=== PATIENT | male | born 1990 | race African-American/Black ===

== ENCOUNTER 2017-07-07 02:10 | Inpatient (IN) | payer SELFPAY ==
[2017-07-07] MEDS ORDERED: Albuterol/Ipratropium 3.0-0.5 MG/3 ML Neb Soln NEB ONE (02:24)
[2017-07-07] MEDS ORDERED: Sodium Chloride 0.9% 1,000 ML IV ONE (02:24)
[2017-07-07] MEDS ORDERED: methylPREDNISolone Sodium Succinate 125 MG/2 ML SDV IVPUSH ONE (02:24)
--- NOTE | 2017-07-07 02:25 | EDM.PDOC ---
ED HPI GENERAL MEDICAL PROBLEM - General Stated Complaint: HARD TIME BREATHING Time Seen by Provider: 07/07/17 02:24 Source of Information: Reports: Patient - History of Present Illness INITIAL COMMENTS - FREE TEXT/NARRATIVE: HISTORY AND PHYSICAL: History of present illness: []Patient presents today In a short of breath since he has some epigastric pain he rates 4 out of 10 nonradiating, patient is tachypneic that he can speak in full sentences and is in no distress. He denies chronic illness disease her medications denies surgical history He complains of intermittent fever shortness of breath no nausea vomiting chest pain headache dizziness or palpitation no bowel or urine symptoms Review of systems: As per history of present illness and below otherwise all systems reviewed and negative. Past medical history: As per history of present illness and as reviewed below otherwise noncontributory. Surgical history: As per history of present illness and as reviewed below otherwise noncontributory. Social history: No reported history of drug or alcohol abuse. Family history: As per history of present illness and as reviewed below otherwise noncontributory. Physical exam: HEENT: Atraumatic, normocephalic, pupils reactive, negative for conjunctival pallor or scleral icterus, mucous membranes moist, throat clear, neck supple, nontender, trachea midline. Lungs: Clear to auscultation, breath sounds equal bilaterally, chest nontender. Heart: S1S2, regular, negative for clicks, rubs, or JVD. Abdomen: Soft, nondistended, nontender. Negative for masses or hepatosplenomegaly. Negative for costovertebral tenderness. Pelvis: Stable nontender. Genitourinary: Deferred. Rectal: Deferred. Extremities: Atraumatic, negative for cords or calf pain. Neurovascular unremarkable. Neuro: Awake, alert, oriented. Cranial nerves II through XII unremarkable. Cerebellum unremarkable. Motor and sensory unremarkable throughout. Exam nonfocal. Diagnostics: []Lab as below EKG Chest 1 view Therapeutics: []Normal saline bolus Solu-Medrol 125 mg IV DuoNeb Levaquin 750 mg IV Septra Impression: []Short of breath Fever Multifocal pneumonia Definitive disposition and diagnosis as appropriate pending reevaluation and review of above. generalized Pain Score (Numeric/FACES): 8 - Related Data Allergies Allergy/AdvReac Type Severity Reaction Status Date / Time No Known Allergies Allergy Verified 07/07/17 02:25 Home Meds: Home Meds . [No Known Home Meds] 07/07/17 [History] ED ROS GENERAL - Review of Systems Review Of Systems: ROS reveals no pertinent complaints other than HPI. HEENT: Reports: No Symptoms ED EXAM, GENERAL - Physical Exam Exam: See Below Course - Vital Signs Last Recorded V/S: Last Vital Signs Temp 36.3 C 07/07/17 05:45 Pulse 98 07/07/17 05:45 Resp 37 H 07/07/17 05:45 BP 97/64 07/07/17 05:45 Pulse Ox 97 07/07/17 05:45 - Orders/Labs/Meds Orders: Active Orders 24 hr Category Date Time Status EKG Documentation Completion [RC] STAT Care 07/07/17 02:58 Active RT Aerosol Therapy [RC] ASDIRECTED Care 07/07/17 02:24 Active CTA Chest W WO Contrast [Ang Chest] [CT] Stat Exams 07/07/17 03:34 Taken Chest 1V Frontal [CR] Stat Exams 07/07/17 02:23 Taken CULTURE BLOOD [BC] Stat Lab 07/07/17 02:42 Received CULTURE BLOOD [BC] Stat Lab 07/07/17 02:46 Received HIV12 AG/AB 4TH GEN W/REFLEX [CHEM] Stat Lab 07/07/17 06:16 Ordered LDH, ISOENZYMES [REF] Stat Lab 07/07/17 06:17 Ordered Levofloxacin/Dextrose 5%-Water [Levaquin in D5W 750 MG/ Med 07/07/17 04:50 Active 150 ML] 750 mg Premix Bag 1 bag IV ONETIME Sulfamethoxazole/Trimethoprim [Septra IV] 20 ml Med 07/07/17 06:30 Active Dextrose 5% in Water 500 ml IV Q8H Blood Culture x2 Reflex Set [OM.PC] Stat Oth 07/07/17 02:23 Ordered Medication Orders Levofloxacin/Dextrose 750 mg/ (Premix) 150 mls @ 100 mls/hr IV ONETIME ONE Stop: 07/07/17 06:19 Last Admin: 07/07/17 04:54 Dose: 100 mls/hr Trimethoprim/Sulfamethoxazole (20 ml/ Dextrose/Water) 520 mls @ 250 mls/hr IV Q8H TACOS Labs: Laboratory Tests 07/07/17 07/07/17 07/07/17 Range/Units 02:40 03:14 03:14 WBC 13.32 H (4.0-11.0) K/uL RBC 6.32 H (4.50-5.90) M/uL Hgb 13.1 (13.0-17.0) g/dL Hct 40.2 (38.0-50.0) % MCV 63.6 L (80.0-98.0) fL MCH 20.7 L (27.0-32.0) pg MCHC 32.6 (31.0-37.0) g/dL RDW Std Deviation 34.8 (28.0-62.0) fl RDW Coeff of Mayank 15 (11.0-15.0) % Plt Count 161 (150-400) K/uL MPV 9.70 (7.40-12.00) fL Neut % (Auto) 77.0 (48.0-80.0) % Lymph % (Auto) 11.6 L (16.0-40.0) % [place] % (Auto) 7.4 (0.0-15.0) % Eos % (Auto) 3.9 (0.0-7.0) % Baso % (Auto) 0.1 (0.0-1.5) % Neut # (Auto) 10.3 H (1.4-5.7) K/uL Lymph # (Auto) 1.5 (0.6-2.4) K/uL [place] # (Auto) 1.0 H (0.0-0.8) K/uL Eos # (Auto) 0.5 (0.0-0.7) K/uL Baso # (Auto) 0.0 (0.0-0.1) K/uL Nucleated RBC % 0.0 /100WBC Nucleated RBCs # 0 K/uL D-Dimer, Quantitative (0.0-0.52) mg/LFEU ABG pH (7.35-7.45) ABG pCO2 (35-45) mmHG ABG pO2 (75-100) mmHG ABG HCO3 (22-26) mEq/L ABG Total CO2 ABG Base Excess (-2.0-2.0) Sodium 137 (136-146) mmol/L Potassium 4.0 (3.5-5.1) mmol/L Chloride 105 (98-110) mmol/L Carbon Dioxide 22 (21-31) mmol/L BUN 17 (6.0-23.0) mg/dL Creatinine 1.1 (0.6-1.5) mg/dL Est Cr Clr Drug Dosing 83.81 mL/min Estimated GFR (MDRD) > 60.0 ml/min Glucose 96 (60-110) mg/dL Calcium 8.3 L (8.8-10.8) mg/dL Total Bilirubin 1.6 H (0.1-1.5) mg/dL AST 18 (5-40) IU/L ALT 16 (8-54) IU/L Alkaline Phosphatase 45 (40-150) Troponin I < 0.10 (0.0-0.29) NG/ML Total Protein 6.5 (6.0-8.0) g/dL Albumin 3.8 (3.5-5.0) g/dL Globulin 2.7 (2.0-3.5) g/dL Albumin/Globulin Ratio 1.4 (1.3-2.8) Amylase 36 (10-90) U/L Lipase < 8 (7-80) U/L Urine Color Urine Appearance Urine pH (5.0-8.0) Ur Specific [place] (1.001-1.035) Urine Protein (NEGATIVE) mg/dL Urine Glucose (UA) (NEGATIVE) mg/dL Urine Ketones (NEGATIVE) mg/dL Urine Occult Blood (NEGATIVE) Urine Nitrite (NEGATIVE) Urine Bilirubin (NEGATIVE) Urine Urobilinogen (<2.0) EU/dL Ur Leukocyte Esterase (NEGATIVE) Urine RBC (0-2/HPF) Urine WBC (0-5/HPF) Ur Epithelial Cells (NONE-FEW) Urine Bacteria (NEGATIVE) 07/07/17 07/07/17 07/07/17 Range/Units 03:14 03:30 04:55 WBC (4.0-11.0) K/uL RBC (4.50-5.90) M/uL Hgb (13.0-17.0) g/dL Hct (38.0-50.0) % MCV (80.0-98.0) fL MCH (27.0-32.0) pg MCHC (31.0-37.0) g/dL RDW Std Deviation (28.0-62.0) fl RDW Coeff of [place]ank (11.0-15.0) % Plt Count (150-400) K/uL MPV (7.40-12.00) fL Neut % (Auto) (48.0-80.0) % Lymph % (Auto) (16.0-40.0) % [place] % (Auto) (0.0-15.0) % Eos % (Auto) (0.0-7.0) % Baso % (Auto) (0.0-1.5) % Neut # (Auto) (1.4-5.7) K/uL Lymph # (Auto) (0.6-2.4) K/uL [place] # (Auto) (0.0-0.8) K/uL Eos # (Auto) (0.0-0.7) K/uL Baso # (Auto) (0.0-0.1) K/uL Nucleated RBC % /100WBC Nucleated RBCs # K/uL D-Dimer, Quantitative 2.18 H (0.0-0.52) mg/LFEU ABG pH 7.424 (7.35-7.45) ABG pCO2 32 L (35-45) mmHG ABG pO2 83 (75-100) mmHG ABG HCO3 21 L (22-26) mEq/L ABG Total CO2 18.9 ABG Base Excess -2.8 L (-2.0-2.0) Sodium (136-146) mmol/L Potassium (3.5-5.1) mmol/L Chloride (98-110) mmol/L Carbon Dioxide (21-31) mmol/L BUN (6.0-23.0) mg/dL Creatinine (0.6-1.5) mg/dL Est Cr Clr Drug Dosing mL/min Estimated GFR (MDRD) ml/min Glucose (60-110) mg/dL Calcium (8.8-10.8) mg/dL Total Bilirubin (0.1-1.5) mg/dL AST (5-40) IU/L ALT (8-54) IU/L Alkaline Phosphatase (40-150) Troponin I (0.0-0.29) NG/ML Total Protein (6.0-8.0) g/dL Albumin (3.5-5.0) g/dL Globulin (2.0-3.5) g/dL Albumin/Globulin Ratio (1.3-2.8) Amylase (10-90) U/L Lipase (7-80) U/L Urine Color YELLOW Urine Appearance CLEAR Urine pH 6.0 (5.0-8.0) Ur Specific [place] 1.015 (1.001-1.035) Urine Protein NEGATIVE (NEGATIVE) mg/dL Urine Glucose (UA) NEGATIVE (NEGATIVE) mg/dL Urine Ketones >=80 (NEGATIVE) mg/dL Urine Occult Blood TRACE-INTACT (NEGATIVE) Urine Nitrite NEGATIVE (NEGATIVE) Urine Bilirubin NEGATIVE (NEGATIVE) Urine Urobilinogen 1.0 (<2.0) EU/dL Ur Leukocyte Esterase NEGATIVE (NEGATIVE) Urine RBC 0-1 (0-2/HPF) Urine WBC 0-2 (0-5/HPF) Ur Epithelial Cells RARE (NONE-FEW) Urine Bacteria RARE (NEGATIVE) Meds: Medications Generic Name Dose Route Start Last Admin Trade Name Eliasq PRN Reason Stop Dose Admin Levofloxacin/Dextrose 750 mg/ 150 mls @ 100 mls/hr 07/07/17 04:50 07/07/17 04 :54 Premix IV 07/07/17 06:19 100 mls/hr ONETIME ONE Administration Trimethoprim/Sulfamethoxazole 520 mls @ 250 mls/hr 07/07/17 06:30 20 ml/ Dextrose/Water IV Q8H TACOS Discontinued Medications Generic Name Dose Route Start Last Admin Trade Name Jocelyn PRN Reason Stop Dose Admin Albuterol/Ipratropium 3 ml 07/07/17 02:24 07/07/17 02:36 Duoneb 3.0-0.5 Mg/3 Ml NEB 07/07/17 02:25 3 ml ONETIME ONE Administration Sodium Chloride 1,000 mls @ 999 mls/hr 07/07/17 02:24 07/07/17 02:43 Normal Saline IV 07/07/17 03:24 999 mls/hr STAT ONE Administration Iopamidol 50 ml 07/07/17 04:41 07/07/17 04:42 Isovue Multipack-370 (76%) IVPUSH 07/07/17 04:42 50 ml ONETIME STA Administration Lorazepam 1 mg 07/07/17 04:38 07/07/17 04:43 Ativan IVPUSH 07/07/17 04:39 1 mg ONETIME ONE Administration Methylprednisolone Sodium Succinate 125 mg 07/07/17 02:24 07/07/17 02:43 Solu-Medrol IVPUSH 07/07/17 02:25 125 mg ONETIME ONE Administration Departure - Departure Time of Disposition: 06:20 Disposition: Admitted As Inpatient 64 Condition: Poor Clinical Impression: Pneumonia - Discharge Information - My Orders Last 24 Hours: My Active Orders 07/07/17 02:23 Chest 1V Frontal [CR] Stat Blood Culture x2 Reflex Set [OM.PC] Stat 07/07/17 02:24 RT Aerosol Therapy [RC] ASDIRECTED 07/07/17 02:42 CULTURE BLOOD [BC] Stat 07/07/17 02:46 CULTURE BLOOD [BC] Stat 07/07/17 02:58 EKG Documentation Completion [RC] STAT 07/07/17 03:34 CTA Chest W WO Contrast [Ang Chest] [CT] Stat 07/07/17 04:50 Levofloxacin/Dextrose 5%-Water [Levaquin in D5W 750 MG/150 ML] 750 mg Premix Bag 1 bag IV ONETIME 07/07/17 06:16 HIV12 AG/AB 4TH GEN W/REFLEX [CHEM] Stat 07/07/17 06:17 LDH, ISOENZYMES [REF] Stat 07/07/17 06:30 Sulfamethoxazole/Trimethoprim [Septra IV] 20 ml Dextrose 5% in Water 500 ml IV Q8H - Assessment/Plan Last 24 Hours: My Active Orders 07/07/17 02:23 Chest 1V Frontal [CR] Stat Blood Culture x2 Reflex Set [OM.PC] Stat 07/07/17 02:24 RT Aerosol Therapy [RC] ASDIRECTED 07/07/17 02:42 CULTURE BLOOD [BC] Stat 07/07/17 02:46 CULTURE BLOOD [BC] Stat 07/07/17 02:58 EKG Documentation Completion [RC] STAT 07/07/17 03:34 CTA Chest W WO Contrast [Ang Chest] [CT] Stat 07/07/17 04:50 Levofloxacin/Dextrose 5%-Water [Levaquin in D5W 750 MG/150 ML] 750 mg Premix Bag 1 bag IV ONETIME 07/07/17 06:16 HIV12 AG/AB 4TH GEN W/REFLEX [CHEM] Stat 07/07/17 06:17 LDH, ISOENZYMES [REF] Stat 07/07/17 06:30 Sulfamethoxazole/Trimethoprim [Septra IV] 20 ml Dextrose 5% in Water 500 ml IV Q8H
[2017-07-07 03:44] LABS: CHLORIDE,CL 105 mmol/L (98-110); SODIUM,NA 137 mmol/L (136-146)
[2017-07-07] MEDS ORDERED: LORazepam 2 MG/ML MDV IVPUSH ONE (04:38)
[2017-07-07] MEDS ORDERED: Iopamidol 755 MG/ML 500 ML Multipack Bottle IVPUSH STA (04:41)
[2017-07-07] MEDS ORDERED: Levofloxacin/Dextrose 5%-Water 750 MG in Premix Bag 1 BAG IV ONE (04:50)
[2017-07-07] MEDS ORDERED: Sulfamethoxazole/Trimethoprim 20 ML in Dextrose 5% in Water 500 ML IV SCH ×2 (06:30)
[2017-07-07] MEDS: cefTRIAXone 1 GM in Premix Bag 1 BAG IV SCH (08:07)
[2017-07-07] MEDS ORDERED: Ondansetron 4 MG Tab.DIS PO PRN (08:20)
[2017-07-07] MEDS ORDERED: Acetaminophen/HYDROcodone 325-5 MG Tab PO PRN (08:20)
[2017-07-07] MEDS ORDERED: Albuterol/Ipratropium 3.0-0.5 MG/3 ML Neb Soln NEB PRN (08:20)
[2017-07-07] MEDS ORDERED: Acetaminophen 325 MG Tab PO PRN (08:20)
[2017-07-07] MEDS ORDERED: Levofloxacin/Dextrose 5%-Water 750 MG in Premix Bag 1 BAG IV SCH (08:30)
[2017-07-07] MEDS: Sodium Chloride 0.9% 1,000 ML IV SCH ×2 (08:42→22:53)
--- NOTE | 2017-07-07 08:56 | PCM.HP ---
H&P History of Present Illness - General Date of Service: 07/07/17 Admit Problem/Dx: Admission Diagnosis/Problem Admission Diagnosis/Problem Pneumonia Source of Information: Patient History Limitations: Reports: No Limitations - History of Present Illness Initial Comments - Free Text/Narative: 27-year-old male with no past medical history that is being admitted with community-acquired pneumonia. Patient presented to the emergency room yesterday evening with shortness of breath. He states that he has had worsening shortness of breath over the last 2 days. He denies any cough or wheezing. No prior history of asthma. He does not currently take any medications including inhalers. He has not been around any sick contacts. He has had intermittent fevers over the last few days. He has had some nausea but denies any vomiting. He has been tolerating oral intake. He complains of some epigastric pain, rating it as 4 out of 10, but denies any blood in the stool or urine and any dark stools. No history of gastric ulcers or GERD. Patient has no prior history of pneumonia. He denies any recent travel. No history of pulmonary embolism or DVT. Patient does complain of diffuse body aches. He also complains of some mild chest pain with inspiration. No cardiac history. Patient denies any diaphoresis. ER course: Patient was given a one-time dose of Levaquin while in the emergency room. He was also given duo nebs, Ativan, Solu-Medrol and an IV fluid bolus. White blood cell count was elevated at 13.3. D-dimer is elevated at 2.18. Chest CT was negative for pulmonary embolism but did show multifocal pneumonia. Chest x-ray also showed patchy opacities in the lower lung reyes bilaterally. ABG showed a normal pH with a slightly decreased CO2 but a normal O2. Urinalysis was unremarkable. Lipase/amylase were unremarkable. CMP was negative. HIV was negative. Blood cultures were obtained and are pending. Patient was extremely tachypnic while in the emergency room with a respiratory rate of 59. He was also tachycardic. He is requiring 3 L nasal cannula to maintain his O2 saturations greater than 90%. He was placed on IV Bactrim while his HIV blood work was pending. generalized Pain Score (Numeric/FACES): 8 - Related Data Allergies/Adverse Reactions: Allergies Allergy/AdvReac Type Severity Reaction Status Date / Time No Known Allergies Allergy Verified 07/07/17 02:25 Home Medications: Home Meds . [No Known Home Meds] 07/07/17 [History] Past Medical History HEENT History: Reports: None Cardiovascular History: Reports: None Respiratory History: Reports: None Gastrointestinal History: Reports: None Genitourinary History: Reports: None Musculoskeletal History: Reports: None Neurological History: Reports: None Psychiatric History: Reports: None Endocrine/Metabolic History: Reports: None Hematologic History: Reports: None Immunologic History: Reports: None Oncologic (Cancer) History: Reports: None Dermatologic History: Reports: None - Infectious Disease History Infectious Disease History: Reports: None - Past Surgical History Head Surgeries/Procedures: Reports: None Cardiovascular Surgical History: Reports: None Social & Family History - Family History Family Medical History: Noncontributory Other HEENT Family History: Pt states he is adopted so he does not know his family history - Tobacco Use Smoking Status *Q: Current Some Day Smoker Years of Tobacco use: 0 Packs/Tins Daily: 0.1 Month Tobacco Last Used: June Tobacco Use Comment: States he started smoking couple of months Second Hand Smoke Exposure: No - Caffeine Use Caffeine Use: Reports: Coffee, Energy Drinks, Tea Other Caffeine Use: Daily - Alcohol Use Days Per Week of Alcohol Use: 2 Number of Drinks Per Day: 2 Total Drinks Per Week: 4 - Recreational Drug Use Recreational Drug Use: No H&P Review of Systems - Review of Systems: Review Of Systems: See Below General: Reports: Fever, Fatigue HEENT: Reports: No Symptoms Pulmonary: Reports: Shortness of Breath. Denies: Cough, Sputum Cardiovascular: Reports: Chest Pain (Sharp right-sided chest pain). Denies: Orthopnea, Edema, Lightheadedness Gastrointestinal: Reports: Abdominal Pain (Epigastric). Denies: Black Stool, Bloody Stool, Constipation, Diarrhea Genitourinary: Reports: No Symptoms Musculoskeletal: Reports: Other (Diffuse body aches) Skin: Reports: No Symptoms Psychiatric: Reports: No Symptoms Neurological: Reports: Headache Hematologic/Lymphatic: Reports: No Symptoms Immunologic: Reports: No Symptoms Exam - Exam Exam: See Below - Vital Signs Vital Signs: Last Vital Signs Temp 96.8 F 07/07/17 06:29 Pulse 95 07/07/17 06:29 Resp 41 H 07/07/17 06:29 BP 105/60 07/07/17 06:35 Pulse Ox 96 07/07/17 06:35 Weight: 136 lb 14.513 oz - Exam Quality Assessment: Supplemental Oxygen (3 L nasal cannula), DVT Prophylaxis ( Lovenox, sequential compression devices) General: Alert, Oriented, Cooperative, Mild Distress HEENT: Conjunctiva Clear, Hearing Intact, Mucosa Moist & [place], Posterior Pharynx Clear Neck: Supple, Trachea Midline, 2 Lungs: Clear to Auscultation, Normal Respiratory Effort Cardiovascular: Regular Rhythm, Tachycardia GI/Abdominal Exam: Normal Bowel Sounds, Soft, No Organomegaly, No Distention, No Abnormal Bruit, No Mass, Tender (Epigastric tenderness with palpation.). No : Guarding, Rebound Extremities: Normal Inspection, Non-Tender, No Pedal Edema, Normal Capillary Refill Peripheral Pulses: 2+: Radial (L), Radial (R), Posterior Tibial (L), Posterior Tibial (R) Skin: Warm, Dry, Intact Neuro Extensive - Mental Status: Alert, Oriented x3, Normal Mood/Affect, Normal Cognition Psychiatric: Alert, Normal Affect, Normal Mood - Patient Data Lab Results Last 24 hrs: Laboratory Results - last 24 hr 07/07/17 07/07/17 Range/Units 06:32 06:32 Lactate Dehydrogenase 173 (125-220) IU/L HIV 1&2 Ag/Ab, 4th Gen 0.1 (<1.0) Result Diagrams: 07/07/17 03:14 07/07/17 03:14 *Q Meaningful Use (ADM) - VTE *Q VTE Criteria *Q: - Stroke *Q Stroke Criteria *Q: - AMI *Q AMI Criteria *Q: - Problem List (1) Pneumonia SNOMED Code(s): 540732522 ICD Code: J18.9 - PNEUMONIA, UNSPECIFIED ORGANISM Status: Acute Current Visit: Yes Problem List Initiated/Reviewed/Updated: Yes Orders Last 24hrs: Active Orders 24 hr Category Date Time Status Antiembolic Devices [RC] PER UNIT ROUTINE Care 07/07/17 08:22 Active Height and Weight [RC] DAILY Care 07/07/17 08:20 Active Intake and Output [RC] QSHIFT Care 07/07/17 08:20 Active Notify Provider Vital Signs [RC] ASDIRECTED Care 07/07/17 08:20 Active Oxygen Therapy [RC] PRN Care 07/07/17 08:20 Active Pulse Oximetry [RC] PRN Care 07/07/17 08:20 Active RT Aerosol Therapy [RC] ASDIRECTED Care 07/07/17 08:24 Active Up With Assistance [RC] ASDIRECTED Care 07/07/17 08:20 Active VTE/DVT Education [RC] PER UNIT ROUTINE Care 07/07/17 08:20 Active Vital Signs [RC] Q4H Care 07/07/17 08:20 Active Regular Diet [DIET] Diet 07/07/17 Breakfast Active BASIC METABOLIC PANEL,BMP [CHEM] AM Lab 07/08/17 05:11 Ordered BASIC METABOLIC PANEL,BMP [CHEM] AM Lab 07/09/17 05:11 Ordered CBC WITH AUTO DIFF [HEME] AM Lab 07/08/17 05:11 Ordered CBC WITH AUTO DIFF [HEME] AM Lab 07/09/17 05:11 Ordered CULTURE SPUTUM + SMEAR [RM] Routine Lab 07/07/17 08:26 Uncollected LEGIONELLA ANTIGEN [RM] Routine Lab 07/07/17 08:27 Ordered M. PNEUMONIAE AB, IGG [REF] Stat Lab 07/07/17 08:48 Ordered PNEUMOCOCCUS AG [RM] Routine Lab 07/07/17 08:48 Uncollected STREP PNEUMONIAE ANTIGEN [MREF] Routine Lab 07/07/17 08:27 Ordered Acetaminophen [Tylenol] Med 07/07/17 08:20 Active 650 mg PO Q4H PRN Acetaminophen/HYDROcodone [[place] 325-5 MG] Med 07/07/17 08:20 Active 1 tab PO Q4H PRN Albuterol/Ipratropium [DuoNeb 3.0-0.5 MG/3 ML] Med 07/07/17 08:20 Active 3 ml NEB Q4HRRT PRN Enoxaparin [Lovenox] Med 07/07/17 09:00 Active 40 mg SUBCUT DAILY Levofloxacin/Dextrose 5%-Water [Levaquin in D5W 750 MG/ Med 07/08/17 07:00 Active 150 ML] 750 mg Premix Bag 1 bag IV Q24H Ondansetron [Zofran ODT] Med 07/07/17 08:20 Active 4 mg PO Q4H PRN Pantoprazole [ProTONIX IV] 40 mg Med 07/07/17 09:00 Active Sodium Chloride 0.9% [Normal Saline] 10 ml IVPUSH Q24H Piperacillin/Tazobactam [Piperacil-Tazobact] 3.375 gm Med 07/07/17 09:00 Active Sodium Chloride 0.9% [Normal Saline] 50 ml IV Q6H Sodium Chloride 0.9% [Normal Saline] 1,000 ml Med 07/07/17 08:30 Active IV ASDIRECTED cefTRIAXone [Rocephin in Dextrose,Iso-Osm 1 GM/50 ML] 1 Med 07/07/17 08:00 Active gm Premix Bag 1 bag IV Q24H methylPREDNISolone Sod Succ [Solu-MEDROL] Med 07/07/17 08:30 Active 40 mg IVPUSH Q12H Sequential Compression Device [OM.PC] Per Unit Routine Oth 07/07/17 08:21 Ordered Resuscitation Status Routine Resus Stat 07/07/17 08:20 Ordered Medication Orders Acetaminophen (Tylenol) 650 mg PO Q4H PRN PRN Reason: Pain (Mild 1-3)/fever Hydrocodone Bitart/Acetaminophen ([place] 325-5 Mg) 1 tab PO Q4H PRN PRN Reason: Pain (moderate 4-6) Albuterol/Ipratropium (Duoneb 3.0-0.5 Mg/3 Ml) 3 ml NEB Q4HRRT PRN PRN Reason: Shortness Of Breath/wheezing Enoxaparin Sodium (Lovenox) 40 mg SUBCUT DAILY [facility] Ceftriaxone Sodium/Dextrose 1 (gm/ Premix) 50 mls @ 100 mls/hr IV Q24H [facility] Last Admin: 07/07/17 08:07 Dose: 100 mls/hr Piperacillin Sod/Tazobactam (Sod 3.375 gm/ Sodium Chloride) 50 mls @ 100 mls/ hr IV Q6H [facility] Sodium Chloride (Normal Saline) 1,000 mls @ 75 mls/hr IV ASDIRECTED [facility] Last Admin: 07/07/17 08:42 Dose: 75 mls/hr Pantoprazole Sodium 40 mg/ (Sodium Chloride) 10 mls @ 300 mls/hr IVPUSH Q24H [facility] Levofloxacin/Dextrose 750 mg/ (Premix) 150 mls @ 100 mls/hr IV Q24H [facility] Methylprednisolone Sodium Succinate (Solu-Medrol) 40 mg IVPUSH Q12H TACOS Ondansetron HCl (Zofran Odt) 4 mg PO Q4H PRN PRN Reason: nausea, able to take PO Assessment/Plan Comment:: 27-year-old male with community-acquired pneumonia #1. Community-acquired pneumonia: -Chest x-ray shows patchy opacity in the lower lung reyes bilaterally. Chest CT shows multifocal pneumonia with no evidence of PE. -Patient received 1 dose of Levaquin and was started on Bactrim IV while in the emergency room. Bactrim IV as been discontinued as the patient had a negative HIV test. -Patient will be started on IV Levaquin and Zosyn. This will also cover for atypical pathogens. Can consider adding vancomycin if patient does not improve. -Solu-Medrol 40 mg IV twice a day. -Due nebs as needed. -Legionella antigen and strep pneumo antigen are pending. Blood cultures and sputum cultures are pending. -Lactic acid was normal. -Patient maintained on normal saline 75 mL/hour. -Influenza pending. -We will monitor white blood cell count with daily CBCs. -Patient having sharp right-sided chest pain with inspiration. EKG showed normal sinus rhythm. We will continue to monitor this. Pain medication available as needed. #2. Epigastric pain: -Patient will be maintained on IV Protonix 40 mg daily. -Amylase, lipase were negative. Patient denies any black stools or romy red blood with bowel movements. We will continue to monitor. Discharge: 2-4 days pending improvement
[2017-07-07] MEDS: Piperacillin/Tazobactam 3.375 GM in Sodium Chloride 0.9% 50 ML IV SCH ×3 (09:02→20:29)
[2017-07-07] MEDS: Pantoprazole 40 MG in Sodium Chloride 0.9% 10 ML IVPUSH SCH (09:03)
[2017-07-07] MEDS: methylPREDNISolone Sodium Succinate 40 MG/1 ML SDV IVPUSH SCH ×2 (09:05→20:29)
[2017-07-07] MEDS: Enoxaparin 40 MG/0.4 ML Syringe SUBCUT SCH (09:05)
--- NOTE | 2017-07-07 15:54 | CR ---
EXAM DATE: 07/07/17 PATIENT'S AGE: 27 Patient: EFE CHINO Facility: [place], [place] Site . Site : 1990 Study: XRay Chest [id number]/18/2017 2:42:35 AM Ordering Physician: Evan Kendall Final Report: INDICATION: Shortness of breath TECHNIQUE: Chest 1 view. COMPARISON: None FINDINGS: Cardiovascular and mediastinum: Heart size and vasculature are normal in caliber and appearance. Mediastinum is within normal limits. Lungs and pleural space: Patchy opacity right costophrenic angle. No sign of pleural effusion. No pneumothorax. Bones and soft tissues: No significant findings. IMPRESSION: Patchy opacity right costophrenic angle. Followup recommended. Dictated by Orlando Shannon MD @ 07/07/2017 2:45:37 AM Dictated by: Orlando Shannon MD @ 07/07/2017 02:45:44 (Electronic Signature) Report Signed by Proxy. BRIANNE
--- NOTE | 2017-07-07 15:55 | CT ---
EXAM DATE: 07/07/17 PATIENT'S AGE: 27 Patient: EFE CHINO Facility: [place], [place] Site . Site : 1990 Study: CT Chest Angio [id number]/18/2017 4:31:44 AM Ordering Physician: Evna Kendall Final Report: INDICATION: Shortness of breath positive D-dimer TECHNIQUE: CT chest pulmonary angiogram acquired with IV contrast. 50 cc Isovue 370 COMPARISON: None FINDINGS: Cardiovascular structures: Normal vascular enhancement of the pulmonary arteries , no sign of pulmonary embolism. Heart size is normal. No sign of aneurysm or dissection in the thoracic aorta. Mediastinum and mitchell: No mass or adenopathy. Lungs: Diffuse bilateral airspace opacities consistent with multifocal pneumonia. Pleura and pericardium: No effusions. Chest wall and axilla: No mass or adenopathy. Bones: No significant findings. Upper abdomen: Unremarkable. IMPRESSION: No evidence for pulmonary embolus. Diffuse bilateral airspace opacities consistent with multifocal pneumonia. Dictated by Orlando Shannon MD @ 07/07/2017 4:40:07 AM Dictated by: Orlando Shannon MD @ 07/07/2017 04:40:14 (Electronic Signature) Report Signed by Proxy. BRIANNE
[2017-07-08] MEDS: Piperacillin/Tazobactam 3.375 GM in Sodium Chloride 0.9% 50 ML IV SCH ×3 (02:30→14:00)
[2017-07-08] MEDS: Sodium Chloride 0.9% 1,000 ML IV SCH ×2 (04:45→10:03)
[2017-07-08] MEDS ORDERED: Levofloxacin/Dextrose 5%-Water 750 MG in Premix Bag 1 BAG IV SCH ×2 (05:00→07:00)
[2017-07-08 05:46] LABS: CHLORIDE,CL 109 mmol/L (98-110); SODIUM,NA 140 mmol/L (136-146)
[2017-07-08] MEDS: cefTRIAXone 1 GM in Premix Bag 1 BAG IV SCH (07:41)
[2017-07-08] MEDS: methylPREDNISolone Sodium Succinate 40 MG/1 ML SDV IVPUSH SCH (07:41)
[2017-07-08] MEDS: Enoxaparin 40 MG/0.4 ML Syringe SUBCUT SCH (08:01)
[2017-07-08] MEDS: Pantoprazole 40 MG in Sodium Chloride 0.9% 10 ML IVPUSH SCH (08:01)
--- NOTE | 2017-07-08 12:04 | PCM.PN ---
- General Info Date of Service: 07/08/17 Subjective Update: He states that he is feeling improvement. He feels short of breath with minimal activity such as talking. He ate a little breakfast. No chest pain not coughing anything up no fever no vomiting He denies any homosexual activity - Patient Data Vitals - Most Recent: Last Vital Signs Temp 98.4 F 07/08/17 08:00 Pulse 95 07/07/17 06:29 Resp 20 07/08/17 11:00 BP 99/57 L 07/08/17 11:00 Pulse Ox 98 07/08/17 11:00 Weight - Most Recent: 62.3 kg I&O - Last 24 Hours: Intake & Output 07/07/17 07/08/17 07/08/17 22:59 06:59 14:59 Intake Total 1999 2560 50 Output Total 1700 3265 Balance 300 -705 50 Lab Results Last 24 Hours: Laboratory Results - last 24 hr 07/08/17 07/08/17 Range/Units 04:50 04:50 WBC 14.53 H (4.0-11.0) K/uL RBC 5.86 (4.50-5.90) M/uL Hgb 12.0 L (13.0-17.0) g/dL Hct 37.0 L (38.0-50.0) % MCV 63.1 L (80.0-98.0) fL MCH 20.5 L (27.0-32.0) pg MCHC 32.4 (31.0-37.0) g/dL RDW Std Deviation 34.5 (28.0-62.0) fl RDW Coeff of Mayank 15 (11.0-15.0) % Plt Count 191 (150-400) K/uL MPV 9.40 (7.40-12.00) fL Neut % (Auto) 85.1 H (48.0-80.0) % Lymph % (Auto) 6.9 L (16.0-40.0) % [place] % (Auto) 6.5 (0.0-15.0) % Eos % (Auto) 1.4 (0.0-7.0) % Baso % (Auto) 0.1 (0.0-1.5) % Neut # (Auto) 12.4 H (1.4-5.7) K/uL Lymph # (Auto) 1.0 (0.6-2.4) K/uL [place] # (Auto) 0.9 H (0.0-0.8) K/uL Eos # (Auto) 0.2 (0.0-0.7) K/uL Baso # (Auto) 0.0 (0.0-0.1) K/uL Nucleated RBC % 0.0 /100WBC Nucleated RBCs # 0 K/uL Sodium 140 (136-146) mmol/L Potassium 4.2 (3.5-5.1) mmol/L Chloride 109 (98-110) mmol/L Carbon Dioxide 25 (21-31) mmol/L BUN 12 (6.0-23.0) mg/dL Creatinine 0.9 (0.6-1.5) mg/dL Est Cr Clr Drug Dosing 106.72 mL/min Estimated GFR (MDRD) > 60.0 ml/min Glucose 167 H (60-110) mg/dL Calcium 8.3 L (8.8-10.8) mg/dL Greg Results Last 24 Hours: Microbiology 07/07/17 10:25 Influenza Type A Antigen Screen - Final Nasopharyngeal Swab - Nare, Left NEGATIVE INFLUENZA A VIRUS AG Influenza Type B Antigen Screen - Final NEGATIVE INFLUENZA B VIRUS AG Med Orders - Current: Current Medications Acetaminophen (Tylenol) 650 mg PO Q4H PRN PRN Reason: Pain (Mild 1-3)/fever Hydrocodone Bitart/Acetaminophen ([place] 325-5 Mg) 1 tab PO Q4H PRN PRN Reason: Pain (moderate 4-6) Last Admin: 07/07/17 22:13 Dose: 1 tab Albuterol/Ipratropium (Duoneb 3.0-0.5 Mg/3 Ml) 3 ml NEB Q4HRRT PRN PRN Reason: Shortness Of Breath/wheezing Enoxaparin Sodium (Lovenox) 40 mg SUBCUT DAILY [facility] Last Admin: 07/08/17 08:01 Dose: 40 mg Piperacillin Sod/Tazobactam (Sod 3.375 gm/ Sodium Chloride) 50 mls @ 100 mls/ hr IV Q6H [facility] Last Admin: 07/08/17 08:27 Dose: 100 mls/hr Pantoprazole Sodium 40 mg/ (Sodium Chloride) 10 mls @ 300 mls/hr IVPUSH Q24H [facility] Last Admin: 07/08/17 08:01 Dose: 300 mls/hr Levofloxacin/Dextrose 750 mg/ (Premix) 150 mls @ 100 mls/hr IV Q24H [facility] Last Admin: 07/08/17 04:25 Dose: 100 mls/hr Sodium Chloride (Normal Saline) 1,000 mls @ 125 mls/hr IV ASDIRECTED [facility] Last Admin: 07/08/17 10:03 Dose: 125 mls/hr Methylprednisolone Sodium Succinate (Solu-Medrol) 40 mg IVPUSH Q12H [facility] Last Admin: 07/08/17 07:41 Dose: 40 mg Ondansetron HCl (Zofran Odt) 4 mg PO Q4H PRN PRN Reason: nausea, able to take PO Discontinued Medications Albuterol/Ipratropium (Duoneb 3.0-0.5 Mg/3 Ml) 3 ml NEB ONETIME ONE Stop: 07/07/17 02:25 Last Admin: 07/07/17 02:36 Dose: 3 ml Sodium Chloride (Normal Saline) 1,000 mls @ 999 mls/hr IV STAT ONE Stop: 07/07/17 03:24 Last Admin: 07/07/17 02:43 Dose: 999 mls/hr Levofloxacin/Dextrose 750 mg/ (Premix) 150 mls @ 100 mls/hr IV ONETIME ONE Stop: 07/07/17 06:19 Last Admin: 07/07/17 04:54 Dose: 100 mls/hr Trimethoprim/Sulfamethoxazole (20 ml/ Dextrose/Water) 520 mls @ 250 mls/hr IV Q8H [facility] Last Admin: 07/07/17 06:38 Dose: 250 mls/hr Ceftriaxone Sodium/Dextrose 1 (gm/ Premix) 50 mls @ 100 mls/hr IV Q24H [facility] Last Admin: 07/08/17 07:41 Dose: 100 mls/hr Levofloxacin/Dextrose 750 mg/ (Premix) 150 mls @ 100 mls/hr IV Q24H [facility] Last Admin: 07/07/17 08:43 Dose: Not Given Sodium Chloride (Normal Saline) 1,000 mls @ 75 mls/hr IV ASDIRECTED [facility] Last Infusion: 07/08/17 04:35 Dose: 125 mls/hr Levofloxacin/Dextrose 750 mg/ (Premix) 150 mls @ 100 mls/hr IV Q24H [facility] Iopamidol (Isovue Multipack-370 (76%)) 50 ml IVPUSH ONETIME STA Stop: 07/07/17 04:42 Last Admin: 07/07/17 04:42 Dose: 50 ml Lorazepam (Ativan) 1 mg IVPUSH ONETIME ONE Stop: 07/07/17 04:39 Last Admin: 07/07/17 04:43 Dose: 1 mg Methylprednisolone Sodium Succinate (Solu-Medrol) 125 mg IVPUSH ONETIME ONE Stop: 07/07/17 02:25 Last Admin: 07/07/17 02:43 Dose: 125 mg - Exam Quality Assessment: Supplemental Oxygen General: Alert, Oriented, Cooperative Neck: Supple Lungs: Other (appears dyspneic at rest with some increased work of breathing; faint rales mainly over the right chest.\) Cardiovascular: Regular Rate, Regular Rhythm Extremities: No Pedal Edema - Problem List & Annotations (1) Pneumonia SNOMED Code(s): 022911416 Code(s): J18.9 - PNEUMONIA, UNSPECIFIED ORGANISM Status: Acute Current Visit: Yes - Problem List Review Problem List Initiated/Reviewed/Updated: Yes - Plan Plan:: 27-year-old male with community-acquired pneumonia #1. Community-acquired pneumonia: -Chest x-ray shows patchy opacity in the lower lung reyes bilaterally. Chest CT shows multifocal pneumonia with no evidence of PE. -Patient received 1 dose of Levaquin and was started on Bactrim IV while in the emergency room. Bactrim IV as been discontinued as the patient had a negative HIV test. -Patient will be started on IV Levaquin and Zosyn. This will also cover for atypical pathogens. Can consider adding vancomycin if patient does not improve. -Solu-Medrol 40 mg IV twice a day. -Due nebs as needed. -Legionella antigen and strep pneumo antigen are pending. Blood cultures and sputum cultures are pending. -Lactic acid was normal. -Patient maintained on normal saline 75 mL/hour. -Influenza pending. -We will monitor white blood cell count with daily CBCs. -Patient having sharp right-sided chest pain with inspiration. EKG showed normal sinus rhythm. We will continue to monitor this. Pain medication available as needed. #2. Epigastric pain: -Patient will be maintained on IV Protonix 40 mg daily. -Amylase, lipase were negative. Patient denies any black stools or romy red blood with bowel movements. We will continue to monitor. Discharge: 2-4 days pending improvement 07/08/2017 minimal improvement. I discussed with Dr pepper who recommended transfer to [facility]. I discussed with patient who agrees. Ponce Pierce MD
--- NOTE | 2017-07-08 12:15 | PCM.DCSUM1 ---
Discharge Summary - Hospital Course Brief History: He was admitted from the ED where he presented with respiratory distress. He was started on levaquin, duonebs, solumedrol and oxygen supplementation. He stabilized in the ED . His initial respiratory rate was in the mid 40's . It improved to the low 20's while in the ED . - Discharge Data Discharge Date: 07/08/17 Discharge Disposition: DC/Tfer to Acute Hospital 02 Condition: Good - Discharge Diagnosis/Problem(s) (1) Pneumonia SNOMED Code(s): 522456078 ICD Code: J18.9 - PNEUMONIA, UNSPECIFIED ORGANISM Status: Acute Current Visit: Yes - Patient Summary/Data Hospital Course: He was admitted to the [facility]. He was treated with bronchodilators, solumedrol , levaquin and zosyn. He is still very dyspneic with minimal activity( such as speaking). I spoke with infectious disease , thanh Romero . Transfer was recommended. Dr Aldrich, hospitalist, kindly accepted the admission. - Discharge Plan Home Medications: Home Meds . [No Known Home Meds] 07/07/17 [History] Referrals: PCP,None [Primary Care Provider] - - Patient Data Vitals - Most Recent: Last Vital Signs Temp 98.4 F 07/08/17 08:00 Pulse 95 07/07/17 06:29 Resp 20 07/08/17 11:00 BP 99/57 L 07/08/17 11:00 Pulse Ox 98 07/08/17 11:00 Weight - Most Recent: 62.3 kg I&O - Last 24 hours: Intake & Output 07/07/17 07/08/17 07/08/17 22:59 06:59 14:59 Intake Total 19990 50 Output Total 0 3265 Balance 300 -705 50 Lab Results - Last 24 hrs: Laboratory Results - last 24 hr 07/08/17 07/08/17 Range/Units 04:50 04:50 WBC 14.53 H (4.0-11.0) K/uL RBC 5.86 (4.50-5.90) M/uL Hgb 12.0 L (13.0-17.0) g/dL Hct 37.0 L (38.0-50.0) % MCV 63.1 L (80.0-98.0) fL MCH 20.5 L (27.0-32.0) pg MCHC 32.4 (31.0-37.0) g/dL RDW Std Deviation 34.5 (28.0-62.0) fl RDW Coeff of Mayank 15 (11.0-15.0) % Plt Count 191 (150-400) K/uL MPV 9.40 (7.40-12.00) fL Neut % (Auto) 85.1 H (48.0-80.0) % Lymph % (Auto) 6.9 L (16.0-40.0) % [place] % (Auto) 6.5 (0.0-15.0) % Eos % (Auto) 1.4 (0.0-7.0) % Baso % (Auto) 0.1 (0.0-1.5) % Neut # (Auto) 12.4 H (1.4-5.7) K/uL Lymph # (Auto) 1.0 (0.6-2.4) K/uL [place] # (Auto) 0.9 H (0.0-0.8) K/uL Eos # (Auto) 0.2 (0.0-0.7) K/uL Baso # (Auto) 0.0 (0.0-0.1) K/uL Nucleated RBC % 0.0 /100WBC Nucleated RBCs # 0 K/uL Sodium 140 (136-146) mmol/L Potassium 4.2 (3.5-5.1) mmol/L Chloride 109 (98-110) mmol/L Carbon Dioxide 25 (21-31) mmol/L BUN 12 (6.0-23.0) mg/dL Creatinine 0.9 (0.6-1.5) mg/dL Est Cr Clr Drug Dosing 106.72 mL/min Estimated GFR (MDRD) > 60.0 ml/min Glucose 167 H (60-110) mg/dL Calcium 8.3 L (8.8-10.8) mg/dL FAIZA Results - Last 24 hrs: Microbiology 07/07/17 10:25 Influenza Type A Antigen Screen - Final Nasopharyngeal Swab - Nare, Left NEGATIVE INFLUENZA A VIRUS AG Influenza Type B Antigen Screen - Final NEGATIVE INFLUENZA B VIRUS AG Med Orders - Current: Current Medications Acetaminophen (Tylenol) 650 mg PO Q4H PRN PRN Reason: Pain (Mild 1-3)/fever Hydrocodone Bitart/Acetaminophen ([place] 325-5 Mg) 1 tab PO Q4H PRN PRN Reason: Pain (moderate 4-6) Last Admin: 07/07/17 22:13 Dose: 1 tab Albuterol/Ipratropium (Duoneb 3.0-0.5 Mg/3 Ml) 3 ml NEB Q4HRRT PRN PRN Reason: Shortness Of Breath/wheezing Enoxaparin Sodium (Lovenox) 40 mg SUBCUT DAILY [facility] Last Admin: 07/08/17 08:01 Dose: 40 mg Piperacillin Sod/Tazobactam (Sod 3.375 gm/ Sodium Chloride) 50 mls @ 100 mls/ hr IV Q6H [facility] Last Admin: 07/08/17 08:27 Dose: 100 mls/hr Pantoprazole Sodium 40 mg/ (Sodium Chloride) 10 mls @ 300 mls/hr IVPUSH Q24H [facility] Last Admin: 07/08/17 08:01 Dose: 300 mls/hr Levofloxacin/Dextrose 750 mg/ (Premix) 150 mls @ 100 mls/hr IV Q24H [facility] Last Admin: 07/08/17 04:25 Dose: 100 mls/hr Sodium Chloride (Normal Saline) 1,000 mls @ 125 mls/hr IV ASDIRECTED [facility] Last Admin: 07/08/17 10:03 Dose: 125 mls/hr Methylprednisolone Sodium Succinate (Solu-Medrol) 40 mg IVPUSH Q12H [facility] Last Admin: 07/08/17 07:41 Dose: 40 mg Ondansetron HCl (Zofran Odt) 4 mg PO Q4H PRN PRN Reason: nausea, able to take PO Discontinued Medications Albuterol/Ipratropium (Duoneb 3.0-0.5 Mg/3 Ml) 3 ml NEB ONETIME ONE Stop: 07/07/17 02:25 Last Admin: 07/07/17 02:36 Dose: 3 ml Sodium Chloride (Normal Saline) 1,000 mls @ 999 mls/hr IV STAT ONE Stop: 07/07/17 03:24 Last Admin: 07/07/17 02:43 Dose: 999 mls/hr Levofloxacin/Dextrose 750 mg/ (Premix) 150 mls @ 100 mls/hr IV ONETIME ONE Stop: 07/07/17 06:19 Last Admin: 07/07/17 04:54 Dose: 100 mls/hr Trimethoprim/Sulfamethoxazole (20 ml/ Dextrose/Water) 520 mls @ 250 mls/hr IV Q8H [facility] Last Admin: 07/07/17 06:38 Dose: 250 mls/hr Ceftriaxone Sodium/Dextrose 1 (gm/ Premix) 50 mls @ 100 mls/hr IV Q24H [facility] Last Admin: 07/08/17 07:41 Dose: 100 mls/hr Levofloxacin/Dextrose 750 mg/ (Premix) 150 mls @ 100 mls/hr IV Q24H [facility] Last Admin: 07/07/17 08:43 Dose: Not Given Sodium Chloride (Normal Saline) 1,000 mls @ 75 mls/hr IV ASDIRECTED [facility] Last Infusion: 07/08/17 04:35 Dose: 125 mls/hr Levofloxacin/Dextrose 750 mg/ (Premix) 150 mls @ 100 mls/hr IV Q24H [facility] Iopamidol (Isovue Multipack-370 (76%)) 50 ml IVPUSH ONETIME STA Stop: 07/07/17 04:42 Last Admin: 07/07/17 04:42 Dose: 50 ml Lorazepam (Ativan) 1 mg IVPUSH ONETIME ONE Stop: 07/07/17 04:39 Last Admin: 07/07/17 04:43 Dose: 1 mg Methylprednisolone Sodium Succinate (Solu-Medrol) 125 mg IVPUSH ONETIME ONE Stop: 07/07/17 02:25 Last Admin: 07/07/17 02:43 Dose: 125 mg *Q Meaningful Use (DIS) - VTE *Q VTE Criteria *Q: - Stroke *Q Stroke Criteria *Q: - AMI *Q AMI Criteria *Q:
[2017-07-08] MEDS ORDERED: Sulfamethoxazole/Trimethoprim 20 ML in Dextrose 5% in Water 500 ML IV SCH ×2 (12:30)
[2017-07-08 13:06] VITALS: BP 107/74
== END 2017-07-08 14:00 | DRG 195 ==
LOC: MW.ED 02:10 → MW.ICU 06:22
PROVIDERS: ADMIT Family Medicine; ATTEND Family Medicine
DX: J18.9 Pneumonia, unspecified organism (principal); R10.13 Epigastric pain; F17.200 Nicotine dependence, unspecified, uncomplicated
CPT/HCPCS: 36415; 36600; 71010; 71010-26; 71275; 71275-26; 80048; 80053; 81001; 82150; 82803; 83605; 83615; 83690; 84484; 85025; 85379; 86738; 87040; 87252; 87254; 87389; 87804; 87899; 93005; 96361; 96365; 96366; 96367; 96375; 99283; 99285-25; A9270-GY; C9113; J0696; J1650; J1956; J2060; J2543; J2920; J2930; J7040; J7050; J7060; Q9967; S0039